=== PATIENT | male | born 1935 | race Two or more races ===

== ENCOUNTER 2017-04-27 17:09 | Inpatient (IN) | payer OTHER ==
[~2017-04-27] VITALS: Ht 177.8 cm; Wt 70.8 kg
[2017-04-27 17:54] LABS: CHLORIDE 96 mEq/L (98-107); INR 1.1; PROTHROMBIN TIME 11.6 sec
[2017-04-27 17:56] LABS: HEMATOCRIT. 40.8 % (42.0-52.0); HEMOGLOBIN. 13.4 g/dL (14.0-18.0); MEAN CORPUSCULAR HEMOGLOBIN 29.8 pg (28.0-32.0); MEAN CORPUSCULAR VOLUME 90.7 fL (80.0-94.0); MEAN PLATELET VOLUME 9.7 fl (7.4-10.4); PLATELET 72 x1000/uL (130-400); RED CELL DISTRIBUTION WIDTH 14.2 % (11.6-14.6)
[2017-04-27 18:03] LABS: CARBON DIOXIDE 26 mEq/L (21-32)
[2017-04-27] MEDS ORDERED: ASPIRIN 81MG EC TABLET PO ONE (18:45)
[2017-04-27] MEDS ORDERED: FUROSEMIDE 40MG/4ML VIAL IVP ONE (18:45)
[2017-04-27 18:54] LABS: ATYPICAL LYMPHOCYTES 1
[2017-04-27 18:55] LABS: PLATELET ESTIMATE DECREASED
[2017-04-27 22:15] LABS: CREATINE KINASE MB FRACTION 4.9 ng/mL (0.5-3.6)
[2017-04-28] VITALS (46 sets, daily range): BP systolic 49–179; BP diastolic 15–89
[2017-04-28] MEDS: FUROSEMIDE 40MG/4ML VIAL IVP SCH ×3 (00:15→16:06)
[2017-04-28] MEDS ORDERED: ACETAMINOPHEN 325MG TABLET PO PRN (01:45)
[2017-04-28] MEDS ORDERED: HYDROCODONE/ACETAMINOPHEN 5/325MG TABLET PO PRN (01:45)
[2017-04-28] MEDS ORDERED: DEXTROSE 50% WATER 50ML SYRINGE IV PRN (01:45)
[2017-04-28] MEDS: BLOOD SUGAR DIAGNOSTIC STRIP TEST SCH ×5 (06:29→21:37)
[2017-04-28 07:14] LABS: HEMATOCRIT. 38.6 % (42.0-52.0); HEMOGLOBIN. 12.9 g/dL (14.0-18.0); MEAN CORPUSCULAR HEMOGLOBIN 29.8 pg (28.0-32.0); MEAN CORPUSCULAR VOLUME 89.4 fL (80.0-94.0); MEAN PLATELET VOLUME 11.5 fl (7.4-10.4); PLATELET 69 x1000/uL (130-400); RED BLOOD CELL COUNT 4.32 mill/uL (4.7-6.1); RED CELL DISTRIBUTION WIDTH 14.4 % (11.6-14.6)
[2017-04-28] MEDS: INSULIN LISPRO 100 UNITS/ML SUBCUT SCH ×4 (07:50→21:37)
[2017-04-28 07:53] LABS: CARBON DIOXIDE 27 mEq/L (21-32); CHLORIDE 95 mEq/L (98-107); CREATINE KINASE 779 IU/L (39-308); HDL CHOLESTEROL 34 mg/dL (40-59); LDL CHOLESTEROL 41 mg/dL (5-100)
[2017-04-28 08:11] LABS: PLATELET ESTIMATE DECREASED
[2017-04-28] MEDS ORDERED: METOPROLOL TARTRATE 25MG TABLET PO SCH (09:00)
[2017-04-28] MEDS ORDERED: LISINOPRIL 20MG TABLET PO SCH (09:00)
[2017-04-28] MEDS ORDERED: POTASSIUM CHLORIDE 20MEQ TABLET SR PO SCH (09:00)
[2017-04-28] MEDS: ASPIRIN 325MG TABLET PO SCH (09:08)
[2017-04-28] MEDS: NOREPINEPHRINE 8 MG in DEXT 5% WATER 242 ML IV PRN (13:12)
[2017-04-28 15:43] LABS: CREATINE KINASE MB FRACTION 4.1 ng/mL (0.5-3.6)
[2017-04-28 15:46] LABS: TROPONIN I 8.2 ng/mL (0.00-0.04)
[2017-04-28] MEDS: POTASSIUM CHLORIDE 20MEQ TABLET SR PO SCH (17:26)
[2017-04-28] MEDS: METFORMIN HCL 500MG SR TABLET 24HR PO SCH (18:20)
[2017-04-28] MEDS ORDERED: *ZOSYN XX SCH (18:45)
[2017-04-28] MEDS: ATORVASTATIN CALCIUM 40MG TABLET PO SCH (21:37)
[2017-04-29] VITALS (104 sets, daily range): BP systolic 53–155; BP diastolic 28–106
[2017-04-29] MEDS: FUROSEMIDE 40MG/4ML VIAL IVP SCH ×3 (00:46→23:54)
[2017-04-29] MEDS: PIPERACILLIN/TAZ 3.375G PREMIX 50 ML IV SCH ×5 (00:47→23:54)
[2017-04-29] MEDS: NOREPINEPHRINE 8 MG in DEXT 5% WATER 242 ML IV PRN ×3 (05:03→19:20)
[2017-04-29 05:19] LABS: HEMATOCRIT. 43.9 % (42.0-52.0); HEMOGLOBIN. 14.6 g/dL (14.0-18.0); MEAN CORPUSCULAR VOLUME 90.2 fL (80.0-94.0); MEAN PLATELET VOLUME 11.1 fl (7.4-10.4); PLATELET 55 x1000/uL (130-400); RED BLOOD CELL COUNT 4.87 mill/uL (4.7-6.1); RED CELL DISTRIBUTION WIDTH 14.4 % (11.6-14.6)
[2017-04-29 05:25] LABS: CREATINE KINASE MB FRACTION 2.4 ng/mL (0.5-3.6)
[2017-04-29 07:12] LABS: TROPONIN I 4.9 ng/mL (0.00-0.04)
[2017-04-29 07:17] LABS: PLATELET ESTIMATE DECREASED
[2017-04-29] MEDS: BLOOD SUGAR DIAGNOSTIC STRIP TEST SCH ×4 (07:50→21:34)
[2017-04-29] MEDS: POTASSIUM CHLORIDE 20MEQ TABLET SR PO SCH ×2 (08:59→17:32)
[2017-04-29] MEDS: ASPIRIN 325MG TABLET PO SCH (09:00)
[2017-04-29] MEDS: INSULIN LISPRO 100 UNITS/ML SUBCUT SCH ×4 (09:01→21:34)
[2017-04-29] MEDS: AMIODARONE HCL 200 MG TABLET PO SCH ×3 (11:32→23:54)
[2017-04-29 12:43] LABS: BG BASE EXCESS 1.6 mmol/L (-2.0-2.0); BG CARBOXYHEMOGLOBIN 0.5 % (0.5-1.5); BG DEOXYHEMOGLOBIN 1.8 % (0.0-5.0); BG HCO3 ACT 25.3 mmol/L (22.0-26.0); BG METHEMOGLOBIN 0.2 % (0.0-1.5); BG OXYGEN SATURATION 98.2 % (92.0-98.5); BG OXYHEMOGLOBIN 97.5 % (94.0-97.0); BG PH 7.453 (7.350-7.450); BG PO2 113.7 mmHg (75.0-100.0); BG SAMPLE SITE RIGHT RADIAL; BG TOTAL HEMOGLOBIN 14.9 g/dL (12.0-18.0); BG VENT MODE NASAL CANNULA
[2017-04-29] MEDS: DIGOXIN 250MCG TABLET PO SCH ×2 (14:50→18:38)
[2017-04-29] MEDS: METFORMIN HCL 500MG SR TABLET 24HR PO SCH (18:20)
[2017-04-29 20:11] LABS: CLARITY URINE CLOUDY (CLEAR); COLOR URINE YELLOW (YELLOW); GLUCOSE URINE NEGATIVE (NEGATIVE); KETONES URINE NEGATIVE (NEGATIVE); LEUKOCYTE ESTERASE URINE TRACE (NEGATIVE); NITRITE URINE NEGATIVE (NEGATIVE); OCCULT BLOOD URINE 2+ (NEGATIVE); PROTEIN URINE 1+ (NEGATIVE)
[2017-04-29] MEDS: ATORVASTATIN CALCIUM 40MG TABLET PO SCH (21:34)
[2017-04-30] VITALS (98 sets, daily range): BP systolic 59–134; BP diastolic 35–75
[2017-04-30] MEDS: NOREPINEPHRINE 8 MG in DEXT 5% WATER 242 ML IV PRN ×3 (02:34→18:12)
[2017-04-30 04:47] LABS: HEMATOCRIT. 41.2 % (42.0-52.0); HEMOGLOBIN. 13.7 g/dL (14.0-18.0); MEAN CORPUSCULAR HEMOGLOBIN 29.6 pg (28.0-32.0); MEAN CORPUSCULAR VOLUME 89.3 fL (80.0-94.0); MEAN PLATELET VOLUME 12.1 fl (7.4-10.4); PLATELET 76 x1000/uL (130-400); RED BLOOD CELL COUNT 4.62 mill/uL (4.7-6.1); RED CELL DISTRIBUTION WIDTH 14.4 % (11.6-14.6)
[2017-04-30] MEDS: PIPERACILLIN/TAZ 3.375G PREMIX 50 ML IV SCH ×4 (05:15→23:40)
[2017-04-30] MEDS: AMIODARONE HCL 200 MG TABLET PO SCH ×4 (05:15→23:39)
[2017-04-30 06:08] LABS: TROPONIN I 3.1 ng/mL (0.00-0.04)
[2017-04-30] MEDS: BLOOD SUGAR DIAGNOSTIC STRIP TEST SCH ×4 (07:50→21:43)
[2017-04-30] MEDS: INSULIN LISPRO 100 UNITS/ML SUBCUT SCH ×4 (07:53→21:43)
[2017-04-30] MEDS: POTASSIUM CHLORIDE 20MEQ TABLET SR PO SCH ×2 (08:42→17:18)
[2017-04-30] MEDS: ASPIRIN 325MG TABLET PO SCH (08:42)
[2017-04-30 09:56] LABS: PLATELET ESTIMATE DECREASED
[2017-04-30] MEDS ORDERED: DIGOXIN 250MCG TABLET PO SCH (10:15)
[2017-04-30] MEDS: FUROSEMIDE 40MG/4ML VIAL IVP SCH ×2 (11:27→23:39)
[2017-04-30] MEDS: METFORMIN HCL 500MG SR TABLET 24HR PO SCH (17:54)
[2017-04-30] MEDS: ATORVASTATIN CALCIUM 40MG TABLET PO SCH (21:43)
[2017-05-01] VITALS (94 sets, daily range): BP systolic 2–153; BP diastolic 41–90
[2017-05-01] MEDS: NOREPINEPHRINE 8 MG in DEXT 5% WATER 242 ML IV PRN ×3 (01:20→18:00)
[2017-05-01] MEDS: AMIODARONE HCL 200 MG TABLET PO SCH ×3 (05:08→17:29)
[2017-05-01] MEDS: PIPERACILLIN/TAZ 3.375G PREMIX 50 ML IV SCH ×3 (05:08→17:29)
[2017-05-01 05:27] LABS: HEMOGLOBIN. 14.4 g/dL (14.0-18.0); MEAN CORPUSCULAR HEMOGLOBIN 29.9 pg (28.0-32.0); MEAN CORPUSCULAR VOLUME 89.5 fL (80.0-94.0); MEAN PLATELET VOLUME 11.1 fl (7.4-10.4); PLATELET 124 x1000/uL (130-400); RED CELL DISTRIBUTION WIDTH 14.6 % (11.6-14.6)
[2017-05-01 07:19] LABS: TROPONIN I 1.1 ng/mL (0.00-0.04)
[2017-05-01] MEDS: INSULIN LISPRO 100 UNITS/ML SUBCUT SCH ×4 (08:20→21:42)
[2017-05-01 08:28] LABS: PLATELET ESTIMATE SLIGHTLY DECREASED
[2017-05-01] MEDS: BLOOD SUGAR DIAGNOSTIC STRIP TEST SCH ×4 (08:33→21:37)
[2017-05-01] MEDS: ASPIRIN 325MG TABLET PO SCH (08:41)
[2017-05-01] MEDS: POTASSIUM CHLORIDE 20MEQ TABLET SR PO SCH ×2 (08:41→17:29)
[2017-05-01] MEDS: FUROSEMIDE 40MG/4ML VIAL IVP SCH (11:27)
[2017-05-01] MEDS ORDERED: VANCOMYCIN 1 G PREMIX 200 ML IV SCH (17:00)
[2017-05-01] MEDS: METFORMIN HCL 500MG SR TABLET 24HR PO SCH (17:28)
[2017-05-01] MEDS ORDERED: VANCOMYCIN 1500MG in DEXTROSE 5% WATER 250ML IV SCH (18:00)
[2017-05-01] MEDS: ATORVASTATIN CALCIUM 40MG TABLET PO SCH (21:58)
[2017-05-02] VITALS (94 sets, daily range): BP systolic 81–147; BP diastolic 42–97
[2017-05-02] MEDS: PIPERACILLIN/TAZ 3.375G PREMIX 50 ML IV SCH ×4 (00:07→17:10)
[2017-05-02] MEDS: AMIODARONE HCL 200 MG TABLET PO SCH ×4 (00:07→17:09)
[2017-05-02] MEDS: FUROSEMIDE 40MG/4ML VIAL IVP SCH ×2 (00:07→10:56)
[2017-05-02] MEDS: NOREPINEPHRINE 8 MG in DEXT 5% WATER 242 ML IV PRN ×2 (05:03→18:04)
[2017-05-02] MEDS: VANCOMYCIN 1 G PREMIX 200 ML IV SCH (07:17)
[2017-05-02] MEDS: BLOOD SUGAR DIAGNOSTIC STRIP TEST SCH ×4 (07:50→20:41)
[2017-05-02 07:53] LABS: BASOPHILS % 0.5 % (0.0-2.0); HEMATOCRIT. 38.3 % (42.0-52.0); HEMOGLOBIN. 12.8 g/dL (14.0-18.0); LYMPHOCYTES % 7.2 % (20.0-50.0); MEAN CORPUSCULAR HEMOGLOBIN 29.8 pg (28.0-32.0); MEAN CORPUSCULAR VOLUME 89.1 fL (80.0-94.0); MEAN PLATELET VOLUME 10.2 fl (7.4-10.4); MONOCYTES % 11.8 % (2.0-8.0); NEUTROPHILS % 77.5 % (40.0-76.0); PLATELET 190 x1000/uL (130-400); RED BLOOD CELL COUNT 4.29 mill/uL (4.7-6.1); RED CELL DISTRIBUTION WIDTH 14.4 % (11.6-14.6)
[2017-05-02] MEDS: INSULIN LISPRO 100 UNITS/ML SUBCUT SCH ×4 (08:20→20:44)
[2017-05-02] MEDS: POTASSIUM CHLORIDE 20MEQ TABLET SR PO SCH ×2 (08:44→17:10)
[2017-05-02] MEDS: ASPIRIN 325MG TABLET PO SCH (08:44)
[2017-05-02] MEDS ORDERED: FUROSEMIDE 40MG/4ML VIAL IVP NR (14:00)
[2017-05-02] MEDS ORDERED: POTASSIUM CHLORIDE 20MEQ TABLET SR PO NR (14:00)
[2017-05-02 14:15] LABS: HEMATOCRIT. 41.8 % (42.0-52.0); HEMOGLOBIN. 13.8 g/dL (14.0-18.0); MEAN CORPUSCULAR HEMOGLOBIN 29.3 pg (28.0-32.0); MEAN CORPUSCULAR VOLUME 88.9 fL (80.0-94.0); MEAN PLATELET VOLUME 9.4 fl (7.4-10.4); PLATELET 200 x1000/uL (130-400); RED CELL DISTRIBUTION WIDTH 14.6 % (11.6-14.6)
[2017-05-02] MEDS: METFORMIN HCL 500MG SR TABLET 24HR PO SCH (17:49)
[2017-05-02] MEDS: ATORVASTATIN CALCIUM 40MG TABLET PO SCH (20:41)
[2017-05-02] MEDS: HYDROCORTISONE 1% OINT 28.35GM TOP SCH (21:00)
[2017-05-02 21:12] LABS: ATYPICAL LYMPHOCYTES 1; PLATELET ESTIMATE NORMAL
[2017-05-03] VITALS (89 sets, daily range): BP systolic 73–168; BP diastolic 39–95
[2017-05-03] MEDS: VANCOMYCIN 1 G PREMIX 200 ML IV SCH (00:01)
[2017-05-03] MEDS ORDERED: DIPHENHYDRAMINE 50MG/ML VIAL IV NR (05:30)
[2017-05-03 05:35] LABS: HEMATOCRIT. 44.4 % (42.0-52.0); HEMOGLOBIN. 14.7 g/dL (14.0-18.0); MEAN CORPUSCULAR HEMOGLOBIN 29.7 pg (28.0-32.0); MEAN CORPUSCULAR VOLUME 89.8 fL (80.0-94.0); MEAN PLATELET VOLUME 9.2 fl (7.4-10.4); PLATELET 259 x1000/uL (130-400); RED BLOOD CELL COUNT 4.95 mill/uL (4.7-6.1); RED CELL DISTRIBUTION WIDTH 14.5 % (11.6-14.6)
[2017-05-03] MEDS: AMIODARONE HCL 200 MG TABLET PO SCH ×5 (05:40→23:26)
[2017-05-03 06:09] LABS: CARBON DIOXIDE 30 mEq/L (21-32); CHLORIDE 98 mEq/L (98-107)
[2017-05-03] MEDS: BLOOD SUGAR DIAGNOSTIC STRIP TEST SCH ×4 (07:50→20:31)
[2017-05-03 08:13] LABS: PLATELET ESTIMATE NORMAL
[2017-05-03] MEDS: INSULIN LISPRO 100 UNITS/ML SUBCUT SCH ×4 (08:20→20:43)
[2017-05-03] MEDS: POTASSIUM CHLORIDE 20MEQ TABLET SR PO SCH ×2 (09:06→17:27)
[2017-05-03] MEDS: HYDROCORTISONE 1% OINT 28.35GM TOP SCH ×2 (09:06→20:43)
[2017-05-03] MEDS: ASPIRIN 325MG TABLET PO SCH (09:06)
[2017-05-03] MEDS: PIPERACILLIN/TAZ 3.375G PREMIX 50 ML IV SCH ×4 (09:19→20:31)
[2017-05-03] MEDS: FUROSEMIDE 40MG/4ML VIAL IVP SCH ×3 (12:03→23:19)
[2017-05-03] MEDS: METFORMIN HCL 500MG SR TABLET 24HR PO SCH (17:20)
[2017-05-03] MEDS: VANCOMYCIN 1250MG in DEXTROSE 5% WATER 250ML IV SCH (17:27)
[2017-05-03] MEDS: ATORVASTATIN CALCIUM 40MG TABLET PO SCH (20:31)
[2017-05-03] MEDS: NOREPINEPHRINE 8 MG in DEXT 5% WATER 242 ML IV PRN (20:39)
[2017-05-04] VITALS (77 sets, daily range): BP systolic 84–153; BP diastolic 38–81
[2017-05-04] MEDS ORDERED: VANCOMYCIN 1 G PREMIX 200 ML IV SCH
[2017-05-04] MEDS: PIPERACILLIN/TAZ 3.375G PREMIX 50 ML IV SCH ×2 (02:47→10:18)
[2017-05-04] MEDS: AMIODARONE HCL 200 MG TABLET PO SCH ×3 (05:39→21:18)
[2017-05-04 06:22] LABS: HEMATOCRIT. 38.4 % (42.0-52.0); HEMOGLOBIN. 12.8 g/dL (14.0-18.0); MEAN CORPUSCULAR HEMOGLOBIN 29.8 pg (28.0-32.0); MEAN CORPUSCULAR VOLUME 89.1 fL (80.0-94.0); MEAN PLATELET VOLUME 8.5 fl (7.4-10.4); PLATELET 258 x1000/uL (130-400); RED BLOOD CELL COUNT 4.31 mill/uL (4.7-6.1); RED CELL DISTRIBUTION WIDTH 14.4 % (11.6-14.6)
[2017-05-04] MEDS: BLOOD SUGAR DIAGNOSTIC STRIP TEST SCH ×4 (07:49→21:13)
[2017-05-04] MEDS: INSULIN LISPRO 100 UNITS/ML SUBCUT SCH ×4 (07:49→21:00)
[2017-05-04] MEDS: ASPIRIN 325MG TABLET PO SCH (08:00)
[2017-05-04] MEDS: POTASSIUM CHLORIDE 20MEQ TABLET SR PO SCH ×2 (08:00→16:09)
[2017-05-04] MEDS: HYDROCORTISONE 1% OINT 28.35GM TOP SCH ×2 (08:02→21:18)
[2017-05-04 08:10] LABS: PLATELET ESTIMATE NORMAL
[2017-05-04] MEDS: FUROSEMIDE 40MG/4ML VIAL IVP SCH (11:58)
[2017-05-04] MEDS: VANCOMYCIN 1250MG in DEXTROSE 5% WATER 250ML IV SCH (11:58)
[2017-05-04] MEDS ORDERED: CEFTRIAXONE 2 G in DEXTROSE 5% WATER 50 ML IV SCH (16:00)
[2017-05-04] MEDS: CEFTRIAXONE 2 G in DEXTROSE 5% WATER 50 ML IV SCH (16:09)
[2017-05-04] MEDS: AMPICILLIN 2,000 MG in SODIUM CHLORIDE 0.9% 100 ML IV SCH (16:09)
[2017-05-04] MEDS: METFORMIN HCL 500MG SR TABLET 24HR PO SCH (17:53)
[2017-05-04] MEDS: ATORVASTATIN CALCIUM 40MG TABLET PO SCH (21:18)
[2017-05-05] VITALS (18 sets, daily range): BP systolic 114–150; BP diastolic 64–106
[2017-05-05] MEDS: AMPICILLIN 2,000 MG in SODIUM CHLORIDE 0.9% 100 ML IV SCH ×5 (00:30→23:15)
[2017-05-05] MEDS: FUROSEMIDE 40MG/4ML VIAL IVP SCH ×3 (00:30→23:12)
[2017-05-05] MEDS: CEFTRIAXONE 2 G in DEXTROSE 5% WATER 50 ML IV SCH ×2 (04:25→17:20)
[2017-05-05 06:00] LABS: HEMOGLOBIN. 13.2 g/dL (14.0-18.0); MEAN CORPUSCULAR HEMOGLOBIN 29.5 pg (28.0-32.0); MEAN CORPUSCULAR VOLUME 89.4 fL (80.0-94.0); PLATELET 291 x1000/uL (130-400); RED BLOOD CELL COUNT 4.48 mill/uL (4.7-6.1); RED CELL DISTRIBUTION WIDTH 14.6 % (11.6-14.6)
[2017-05-05] MEDS: AMIODARONE HCL 200 MG TABLET PO SCH ×3 (06:17→20:53)
[2017-05-05] MEDS: BLOOD SUGAR DIAGNOSTIC STRIP TEST SCH ×4 (07:50→22:42)
[2017-05-05] MEDS: INSULIN LISPRO 100 UNITS/ML SUBCUT SCH ×4 (08:20→21:00)
[2017-05-05] MEDS: POTASSIUM CHLORIDE 20MEQ TABLET SR PO SCH ×2 (08:59→17:10)
[2017-05-05] MEDS: HYDROCORTISONE 1% OINT 28.35GM TOP SCH ×2 (08:59→20:54)
[2017-05-05] MEDS: ASPIRIN 325MG TABLET PO SCH (08:59)
[2017-05-05 11:11] LABS: PLATELET ESTIMATE NORMAL
[2017-05-05] MEDS: METFORMIN HCL 500MG SR TABLET 24HR PO SCH (17:10)
[2017-05-05] MEDS: ATORVASTATIN CALCIUM 40MG TABLET PO SCH (20:53)
[2017-05-06] VITALS (7 sets, daily range): BP systolic 109–167; BP diastolic 65–96
[2017-05-06] MEDS: CEFTRIAXONE 2 G in DEXTROSE 5% WATER 50 ML IV SCH ×2 (04:47→17:31)
[2017-05-06] MEDS: AMPICILLIN 2,000 MG in SODIUM CHLORIDE 0.9% 100 ML IV SCH ×4 (05:32→23:42)
[2017-05-06 06:16] LABS: CHLORIDE 96 mEq/L (98-107)
[2017-05-06] MEDS: INSULIN LISPRO 100 UNITS/ML SUBCUT SCH ×4 (06:22→20:58)
[2017-05-06] MEDS: BLOOD SUGAR DIAGNOSTIC STRIP TEST SCH ×4 (06:22→20:57)
[2017-05-06 06:26] LABS: CARBON DIOXIDE 30 mEq/L (21-32)
[2017-05-06 06:57] LABS: HEMATOCRIT. 37.1 % (42.0-52.0); HEMOGLOBIN. 12.2 g/dL (14.0-18.0); MEAN CORPUSCULAR HEMOGLOBIN 29.3 pg (28.0-32.0); MEAN CORPUSCULAR VOLUME 89.4 fL (80.0-94.0); MEAN PLATELET VOLUME 8.2 fl (7.4-10.4); PLATELET 333 x1000/uL (130-400); RED BLOOD CELL COUNT 4.15 mill/uL (4.7-6.1); RED CELL DISTRIBUTION WIDTH 14.2 % (11.6-14.6)
[2017-05-06] MEDS: HYDROCORTISONE 1% OINT 28.35GM TOP SCH ×2 (09:00→21:02)
[2017-05-06] MEDS: POTASSIUM CHLORIDE 20MEQ TABLET SR PO SCH ×2 (09:14→18:00)
[2017-05-06] MEDS: AMIODARONE HCL 200 MG TABLET PO SCH (09:14)
[2017-05-06] MEDS: ASPIRIN 325MG TABLET PO SCH (09:14)
[2017-05-06] MEDS: FUROSEMIDE 40MG/4ML VIAL IVP SCH ×2 (12:07→23:42)
[2017-05-06 13:25] LABS: PLATELET ESTIMATE NORMAL
[2017-05-06] MEDS: METFORMIN HCL 500MG SR TABLET 24HR PO SCH (18:00)
[2017-05-06] MEDS: ATORVASTATIN CALCIUM 40MG TABLET PO SCH (20:57)
[2017-05-07] VITALS (7 sets, daily range): BP systolic 95–161; BP diastolic 50–91
[2017-05-07] MEDS: CEFTRIAXONE 2 G in DEXTROSE 5% WATER 50 ML IV SCH ×2 (05:03→17:18)
[2017-05-07] MEDS: AMPICILLIN 2,000 MG in SODIUM CHLORIDE 0.9% 100 ML IV SCH ×4 (05:32→23:44)
[2017-05-07] MEDS: BLOOD SUGAR DIAGNOSTIC STRIP TEST SCH ×4 (05:54→21:00)
[2017-05-07] MEDS: INSULIN LISPRO 100 UNITS/ML SUBCUT SCH ×4 (05:56→21:00)
[2017-05-07 08:02] LABS: HEMATOCRIT. 36.5 % (42.0-52.0); HEMOGLOBIN. 12.1 g/dL (14.0-18.0); MEAN CORPUSCULAR HEMOGLOBIN 29.4 pg (28.0-32.0); MEAN CORPUSCULAR VOLUME 88.4 fL (80.0-94.0); MEAN PLATELET VOLUME 7.9 fl (7.4-10.4); PLATELET 339 x1000/uL (130-400); RED BLOOD CELL COUNT 4.13 mill/uL (4.7-6.1)
[2017-05-07] MEDS: HYDROCORTISONE 1% OINT 28.35GM TOP SCH ×2 (08:09→21:52)
[2017-05-07] MEDS: AMIODARONE HCL 200 MG TABLET PO SCH (08:14)
[2017-05-07] MEDS: ASPIRIN 325MG TABLET PO SCH (08:14)
[2017-05-07] MEDS: POTASSIUM CHLORIDE 20MEQ TABLET SR PO SCH ×2 (08:14→17:48)
[2017-05-07 08:16] LABS: CARBON DIOXIDE 28 mEq/L (21-32); CHLORIDE 98 mEq/L (98-107)
[2017-05-07] MEDS: FUROSEMIDE 40MG/4ML VIAL IVP SCH ×2 (12:26→23:44)
[2017-05-07 16:30] LABS: PLATELET ESTIMATE NORMAL
[2017-05-07] MEDS: METFORMIN HCL 500MG SR TABLET 24HR PO SCH (17:48)
[2017-05-07] MEDS: ATORVASTATIN CALCIUM 40MG TABLET PO SCH (21:51)
[2017-05-08] VITALS: BP 126/78
[2017-05-08 04:00] VITALS: BP 123/65
[2017-05-08] MEDS: CEFTRIAXONE 2 G in DEXTROSE 5% WATER 50 ML IV SCH ×2 (04:54→17:13)
[2017-05-08] MEDS: AMPICILLIN 2,000 MG in SODIUM CHLORIDE 0.9% 100 ML IV SCH ×4 (05:33→23:50)
[2017-05-08] MEDS: INSULIN LISPRO 100 UNITS/ML SUBCUT SCH ×4 (06:29→21:00)
[2017-05-08] MEDS: BLOOD SUGAR DIAGNOSTIC STRIP TEST SCH ×4 (06:29→21:00)
[2017-05-08 08:00] VITALS: BP 122/72
[2017-05-08] MEDS: AMIODARONE HCL 200 MG TABLET PO SCH (08:44)
[2017-05-08] MEDS: POTASSIUM CHLORIDE 20MEQ TABLET SR PO SCH ×2 (08:44→17:58)
[2017-05-08] MEDS: ASPIRIN 325MG TABLET PO SCH (08:44)
[2017-05-08] MEDS: HYDROCORTISONE 1% OINT 28.35GM TOP SCH ×2 (08:45→20:57)
[2017-05-08] MEDS: FUROSEMIDE 40MG/4ML VIAL IVP SCH ×2 (11:26→23:35)
[2017-05-08 16:00] VITALS: BP 111/64
[2017-05-08] MEDS: METFORMIN HCL 500MG SR TABLET 24HR PO SCH (17:58)
[2017-05-08 18:16] VITALS: BP 111/64
[2017-05-08 20:00] VITALS: BP 148/87
[2017-05-08] MEDS: ATORVASTATIN CALCIUM 40MG TABLET PO SCH (20:57)
[2017-05-09] VITALS: BP 129/75
== END 2017-05-09 03:40 | DRG 871 ==
LOC: ER 17:31 → ENRESERV 21:10 → 6WST 23:14 → CVICU 04-28 12:37 → 5WST 05-05 16:15
PROVIDERS: ADMIT Internal Medicine; ATTEND Internal Medicine
PROC: 02HV33Z Insertion of Infusion Device into Superior Vena Cava, Percutaneous Approach (ICD-10-PCS; principal; 2017-04-28)
PROC: B548ZZA Ultrasonography of Superior Vena Cava, Guidance (ICD-10-PCS; 2017-04-28)
DX: A41.9 Sepsis, unspecified organism (principal); I50.33 Acute on chronic diastolic (congestive) heart failure; I21.4 Non-ST elevation (NSTEMI) myocardial infarction; J18.9 Pneumonia, unspecified organism; R65.21 Severe sepsis with septic shock; I13.0 Hypertensive heart and chronic kidney disease with heart failure and stage 1 through stage 4 chronic kidney disease, or unspecified chronic kidney disease; I38 Endocarditis, valve unspecified; I35.2 Nonrheumatic aortic (valve) stenosis with insufficiency; N18.3 Chronic kidney disease, stage 3 (moderate); E11.22 Type 2 diabetes mellitus with diabetic chronic kidney disease; I71.9 Aortic aneurysm of unspecified site, without rupture; B95.2 Enterococcus as the cause of diseases classified elsewhere; I25.10 Atherosclerotic heart disease of native coronary artery without angina pectoris; I48.91 Unspecified atrial fibrillation; J32.9 Chronic sinusitis, unspecified; Z87.891 Personal history of nicotine dependence
CPT/HCPCS: 36415; 36569; 36600; 71010; 74176; 76937; 80048; 80053; 80061; 80202; 81001; 82375; 82550; 82553; 82805; 82962; 83036; 83735; 83880; 84484; 85025; 85379; 85610; 87040; 87077; 87086; 87186; 87493; 93005; 93306; 96374; 97116; 97162; 97530; 99291; A6261; C1725; J0290; J0696; J1200; J1815; J1940; J2543; J3370; J3490; J7040; J7050; J7060; A4315